=== PATIENT | male | born 1990 | race Caucasian/White ===

== ENCOUNTER 2017-05-26 04:26 | Emergency (ER) | payer BC ==
[~2017-05-26] VITALS: Ht 167.6 cm; Wt 73.5 kg
[2017-05-26 04:30] VITALS: Ht 167.6 cm; Wt 73.5 kg
[2017-05-26] MEDS ORDERED: DIPHTH/TET/ACEL PERTUSS (ADULT) 0.5 ML VIAL IM* ONE (05:00)
[2017-05-26] MEDS ORDERED: IBUP-1542 PO (05:04)
[2017-05-26] MEDS ORDERED: SULF1TAB31 PO (05:04)
--- NOTE | 2017-05-26 05:16 | ERD ---
ER Documentation Chief Complaint Date/Time DATE: 05/26/17 TIME: 05:11 Chief Complaint laceration left upper leg HPI 26-year-old male presents here in emergency department left upper leg laceration wound after hitting it with something while walking the bathroom. Patient's wound was bleeding but it was controlled immediately afterwards. Patient describes the pain as sharp pain, 6/10 scale, is worse upon touching the area. ROS All systems reviewed and are negative except as per history of present illness. Medications Home Meds Active Scripts Ibuprofen* (Motrin*) 600 Mg Tab, 600 MG PO Q6H Y for PAIN AND OR ELEVATED TEMP, #30 TAB Prov:LEONA MCDERMOTT NP 05/26/17 Sulfamethoxazole/Trimethoprim* (Bactrim Ds* Tablet) 1 Each Tablet, 1 TAB PO BID , #14 TAB Prov:LEONA MCDERMOTT NP 05/26/17 Allergies Allergies: Coded Allergies: Penicillins (Verified Allergy, Unknown, 05/26/17) PMhx/Soc History of Surgery: No Anesthesia Reaction: No Hx Neurological Disorder: No Hx Respiratory Disorders: Yes (ASTHMA) Hx Cardiac Disorders: No Hx Psychiatric Problems: No Hx Miscellaneous Medical Probl: Yes (SEASONAL ALLERGIES) Hx Alcohol Use: No Hx Substance Use: No Hx Tobacco Use: No Smoking Status: Never smoker FmHx Family History: No coronary disease, No diabetes, No other Physical Exam Vitals Vital Signs Date Time Temp Pulse Resp B/P Pulse Ox O2 Delivery O2 Flow Rate FiO2 05/26/17 04:30 97.8 75 20 140/77 100 Physical Exam GENERAL: The patient is well developed and appropriate for usual state of health, in no apparent distress. CHEST: Clear to auscultation bilaterally. There are no rales, wheezes or rhonchi. HEART: Regular rate and rhythm. No murmurs, clicks, rubs or gallops. No S3 or S4. ABDOMEN: Soft, nontender and nondistended. Good bowel sounds. No rebound or guarding. No gross peritonitis. No gross organomegaly or masses. No Ramsussen sign or McBurney point tenderness. BACK: No midline or flank tenderness. EXTREMITIES: Equal pulses bilaterally. There is no peripheral clubbing, cyanosis or edema. No focal swelling or erythema. Full range of motion. Grossly neurovascularly intact. NEURO: Alert and oriented. Cranial nerves 2-12 intact. Motor strength in all 4 extremities with 5/5 strength. Sensation grossly intact. Normal speech and gait. SKIN: Noted 2.5 cm laceration wound in the left upper thigh, no foreign body. There is no apparent rash or petechia. The skin is warm and dry. HEMATOLOGIC AND LYMPHATIC: There is no evidence of excessive bruising or lymphedema. No gross cervical, axillary, or inguinal lymphadenopathy. Results 24 hrs Current Medications Medications (Trade) Dose Ordered Sig/Mario Route PRN Reason Start Time Stop Time Status Last Admin Dose Admin Diphtheria/ Tetanus/Acell Pertussis (Adacel) 0.5 ml ONCE ONCE IM* 05/26/17 05:00 05/26/17 05:02 DC Tdap was given to prevent tetanus. Patient tolerated medication well. Procedures/MDM Procedure Note: After obtaining informed consent, the wound was irrigated with 250 ml of normal saline and cleaned with diluted betadine. Using aseptic technique, the wound was approximated using 3 kurt. After the procedure, the wound was well approximated. Patient tolerated procedure well. A dry dressing was applied afterwards. Medical decision making: Patient's symptoms most likely consistent with a laceration wound, it was repaired without any difficulty. No symptoms of any neurovascular compromise. No foreign body. No tendon involvement, no joint involvement. Disposition: Home. Condition. Stable Prescription Bactrim, ibuprofen. Instructions: Patient is advised to take medications as prescribed. Patient was advised to have wound checked in 2 days and suture/ staple removal in 7-10 days. Patient is advised that if there are signs and symptoms of infection, redness, swelling, fever or chills, worsening symptoms to return to emergency room immediately. Otherwise, patient can follow up with primary care doctor in 2 days for reevaluation of symptoms. Departure Diagnosis: Primary Impression: Leg laceration Encounter type: initial encounter Laterality: left Qualified Code: S81.812A - Leg laceration, left, initial encounter Condition: Stable Patient Instructions: Laceration, Extrem (Suture, Staple, Or Tape) Additional Instructions: wound check 2 days, staple removal 7-10 days LEONA MCDERMOTT NP May 26, 2017 05:16
== END 2017-05-26 05:53 | disposition home or self-care (01) ==
LOC: FTE 04:26
DX: S81.812A Laceration without foreign body, left lower leg, initial encounter (principal); J45.909 Unspecified asthma, uncomplicated; W22.8XXA Striking against or struck by other objects, initial encounter; Y92.9 Unspecified place or not applicable; Z23 Encounter for immunization
CPT/HCPCS: 90471; 90715